=== PATIENT | male | born 1990 | race Caucasian/White ===

== ENCOUNTER 2017-10-05 16:08 | Emergency (ER) | payer MEDICAID, OTHER ==
[~2017-10-05] VITALS: Ht 177.8 cm; Wt 53.1 kg
[~2017-10-05 16:08] MED LIST: IBUP400T22 PO
[2017-10-05 16:24] VITALS: Ht 177.8 cm; Wt 53.1 kg
[2017-10-05] MEDS ORDERED: ONDANSETRON (ODT) 4 MG TAB ODT STA (19:04)
[2017-10-05] MEDS ORDERED: BISM262O23 PO (20:22)
[2017-10-05] MEDS ORDERED: ONDA8TAB14 PO (20:22)
--- NOTE | 2017-10-05 20:24 | ERD ---
ER Documentation Chief Complaint Chief Complaint vomiting and diarrhea today HPI 26-year-old male presents with a one-day history of vomiting diarrhea, nonbilious nonbloody and no blood or mucus in diarrhea. Denies fever, abdominal pain. He denies foreign travel or suspect food. ROS All systems reviewed and are negative except as per history of present illness. Medications Home Meds Active Scripts Bismuth Subsalicylate* (Pepto-Bismol*) 262 Mg/15 Ml Oral.susp, 15 ML PO Q3H Y for DIARRHEA for 4 Days, ML Prov:PHILIPPE VALLEJO MD 10/05/17 Ondansetron (Ondansetron Odt) 8 Mg Tab.rapdis, 8 MG PO Q6H Y for NAUSEA AND/OR VOMITING, #10 TAB Prov:PHILIPPE VALLEJO MD 10/05/17 Ibuprofen* (Motrin*) 400 Mg Tab, 400 MG PO Q6H Y for PAIN, #30 Prov:YASMIN TARIQ 05/01/15 Allergies Allergies: Coded Allergies: No Known Allergy (Unverified , 10/05/17) PMhx/Soc Medical and Surgical Hx: pt denies Medical Hx, pt denies Surgical Hx History of Surgery: No Anesthesia Reaction: No Hx Neurological Disorder: No Hx Respiratory Disorders: No Hx Cardiac Disorders: No Hx Psychiatric Problems: No Hx Miscellaneous Medical Probl: No Hx Alcohol Use: Yes (occasionally drinks beer/alcohol) Hx Substance Use: Yes Hx Tobacco Use: Yes (occasionally ) Smoking Status: Never smoker Physical Exam Vitals Vital Signs Date Time Temp Pulse Resp B/P Pulse Ox O2 Delivery O2 Flow Rate FiO2 10/05/17 16:24 99.7 83 18 126/78 100 Physical Exam Const: [], [id number]. Head: Atraumatic Eyes: Normal Conjunctiva ENT: Normal External Ears, Nose and Mouth. Neck: Full range of motion..~ No meningismus. Resp: Clear to auscultation bilaterally Cardio: Regular rate and rhythm, no murmurs Abd: Soft, non tender, non distended. Normal bowel sounds Skin: No petechiae or rashes Back: No midline or flank tenderness Ext: No cyanosis, or edema Neur: Awake and alert Psych: Normal Mood and Affect Results 24 hrs Current Medications Medications (Trade) Dose Ordered Sig/Estefanía Route PRN Reason Start Time Stop Time Status Last Admin Dose Admin Ondansetron HCl (Zofran Odt) 8 mg ONCE STAT ODT 10/05/17 19:04 10/05/17 19:05 DC 10/05/17 19:15 Procedures/MDM Patient presents with vomiting diarrhea for one days duration without evidence of abdominal pain. Is given Zofran 8 mg and after observation was able tolerate p.o.'s and felt much better with resolution of nausea and vomiting. Patient presents with vomiting diarrhea of one days duration, likely gastrointestinal virus. No signs of abdominal pain, obstruction, sepsis. He will treated with Zofran and further observation and return precautions at home. Should return for vomiting despite treatment, abdominal pain, blood, new worsening symptoms otherwise allow viral illness to resolve and return as directed. The patient was stable with no new complaints during the ER course. Clinically, there is no current evidence to suggest meningitis, sepsis, acute abdomen, pneumonia, acute coronary syndrome, pulmonary embolism, or any other emergent condition appearing to require further evaluation or hospitalization. The patient should certainly return for any new or worsening symptoms per the aftercare instructions. They should otherwise follow-up with her primary care doctor for reevaluation this week. Departure Diagnosis: Primary Impression: Vomiting and diarrhea Condition: Stable Patient Instructions: Vomiting And Diarrhea, Nonspecific (Adult) Additional Instructions: Likely gastrointestinal virus may last 1-3 days on average. Recheck for abdominal pain, blood, vomiting despite treatment, new or worsening symptoms or primary care doctor. PHILIPPE VALLEJO MD Oct 05, 2017 20:24
[2017-10-05 21:19] VITALS: BP 124/68; PULSE 126; RESP 20; TEMP 100
== END 2017-10-05 21:21 | disposition home or self-care (01) ==
LOC: FTE 16:08
DX: R11.10 Vomiting, unspecified (principal); R19.7 Diarrhea, unspecified
CPT/HCPCS: Z7502; Z7610; 99283

== ENCOUNTER 2019-06-07 01:32 | Emergency (ER) | payer OTHER ==
[~2019-06-07] VITALS: Ht 177.8 cm; Wt 56.4 kg
[~2019-06-07 01:32] MED LIST changes: +BISM262O23 PO; +IBUP-1561 PO; -IBUP400T22 PO; +ONDA4TAB14 PO; +ONDA8TAB14 PO
[2019-06-07 01:38] VITALS: BP 148/78; PULSE 111; RESP 18; Ht 177.8 cm; Wt 56.4 kg
[2019-06-07] MEDS ORDERED: ONDANSETRON (ODT) 4 MG TAB ODT STA (01:57)
== END 2019-06-07 02:43 | disposition home or self-care (01) ==
LOC: FTE 01:32
DX: R11.2 Nausea with vomiting, unspecified (principal); Z87.891 Personal history of nicotine dependence
CPT/HCPCS: Z7502; Z7610; 99283